=== PATIENT | male | born 1950 | race Caucasian/White ===

== ENCOUNTER 2022-03-08 16:20 | Inpatient (IN) ==
[2022-03-08] MEDS ORDERED: DEXTROSE 50% 25 GM/50 ML SYRINGE IV ONE ×2 (16:35→18:10)
[2022-03-08] MEDS ORDERED: DEXTROSE 50% 25 GM/50 ML VIAL IV STA ×2 (16:50→16:58)
[2022-03-08 16:58] LABS: Basophils % 0.4 % (0.0-0.8); Eosinophils # 0.2 10*3/uL (0.0-0.87); Eosinophils % 1.9 % (0.00-10.9); Hematocrit 38.5 VOL% (42.0-52.0); Hemoglobin 12.2 GM/DL (14.0-18.0); Immature Granulocytes % 0.9 %; Immature Granulocytes Absolute 0.09 #; Lymphocytes # 1.7 10*3/uL (1.4-4.0); Lymphocytes % 16.3 % (21.2-54.2); Mean Corpuscular HGB Conc 31.7 GM/DL (32-36); Mean Platelet Volume 9.6 FL (9.6-12.0); Monocytes # 0.7 10*3/uL (0.11-0.8); Monocytes % 6.8 % (1.7-12.7); Neutrophils % 73.7 % (38.7-73.9); Platelet Count 327 T/CUMM (130-400); Red Blood Count 4.28 MC/CUMM (3.8-5.5); Red Cell Distribution Width 15.7 % (9.3-17.3); White Blood Count 10.5 T/CUMM (4-12)
[2022-03-08 17:13] LABS: INR 2.5; PT Patient Result 25.5 SECS (10.1-12.1); Partial Thromboplastin Time 36.5 SECS (23.7-32.9)
[2022-03-08 17:48] LABS: Calcium 9.7 MG/DL (8.5-10.1)
[2022-03-08 17:49] LABS: Albumin 2.9 G/DL (3.4-5.0); Osmolality,Calculated 277.4 MOS/KG (273-304)
[2022-03-08 17:54] LABS: Bilirubin,Total 0.4 MG/DL (0.20-1.00); Total Protein 6.9 G/DL (6.4-8.2)
[2022-03-08 17:58] LABS: Potassium 6.1 MMOL/L (3.5-5.1)
[2022-03-08] MEDS ORDERED: SODIUM BICARBONATE 50 MEQ/50 ML VIAL IV STA (17:58)
[2022-03-08] MEDS ORDERED: INSULIN REGULAR 100 UNIT/ML IV STA (17:58)
[2022-03-08] MEDS ORDERED: CALCIUM CHLORIDE 1,000 MG/10 ML SYRINGE IV STA (17:58)
[2022-03-08] MEDS ORDERED: SODIUM CHLORIDE 0.9% 2,000 ML IV STA (18:30)
[2022-03-08] MEDS ORDERED: GLUCAGON 1 MG VIAL IM PRN (22:57)
[2022-03-08] MEDS ORDERED: ONDANSETRON 4 MG/2 ML VIAL IV PRN (22:57)
[2022-03-08] MEDS ORDERED: DEXTROSE 10% 250 ML BAG IV PRN (23:00)
[2022-03-08] MEDS: DOCUSATE SODIUM 100 MG CAPSULE PO SCH (23:44)
[2022-03-08] MEDS: SODIUM CHLORIDE 0.9% 1,000 ML IV SCH (23:44)
[2022-03-09] MEDS: ACETAMINOPHEN 325 MG TABLET PO PRN ×3 (01:39→23:46)
[2022-03-09 06:18] LABS: Calcium 9.9 MG/DL (8.5-10.1); Potassium 5.3 MMOL/L (3.5-5.1)
[2022-03-09] MEDS ORDERED: LACTULOSE 20 GM/30 ML UDCUP PO PRN (08:45)
[2022-03-09] MEDS: DOCUSATE SODIUM 100 MG CAPSULE PO SCH ×2 (09:21→21:01)
[2022-03-09] MEDS: PANTOPRAZOLE 40 MG TABLET PO SCH (09:21)
[2022-03-09] MEDS: SODIUM CHLORIDE 0.9% 1,000 ML IV SCH ×2 (10:00→21:02)
[2022-03-09] MEDS: ALBUTEROL 2.5 MG/3 ML NEB RESP TX SCH ×2 (19:21→23:40)
[2022-03-09] MEDS: traMADol 50 MG TABLET PO PRN (23:05)
[2022-03-10] MEDS: SODIUM CHLORIDE 0.9% 1,000 ML IV SCH ×3 (00:27→21:09)
[2022-03-10] MEDS: ALBUTEROL 2.5 MG/3 ML NEB RESP TX SCH ×5 (02:09→19:19)
[2022-03-10] MEDS: PANTOPRAZOLE 40 MG TABLET PO SCH (09:41)
[2022-03-10] MEDS: traMADol 50 MG TABLET PO PRN (09:42)
[2022-03-10] MEDS: DOCUSATE SODIUM 100 MG CAPSULE PO SCH ×2 (09:51→21:29)
[2022-03-10] MEDS: ACETAMINOPHEN 325 MG TABLET PO PRN (13:02)
[2022-03-10] MEDS ORDERED: ALBUTEROL 2.5 MG/3 ML NEB RESP TX PRN (13:13)
[2022-03-10] MEDS: traMADol 50 MG TABLET PO SCH ×2 (16:05→21:28)
[2022-03-10] MEDS ORDERED: SIMVASTATIN 20 MG TABLET PO SCH (21:00)
[2022-03-10] MEDS: METOPROLOL SUCCINATE XL 100 MG TABLET PO SCH (21:26)
[2022-03-10] MEDS: DILTIAZEM CD 240 MG CAPSULE PO SCH (21:26)
[2022-03-10] MEDS: allopurinoL 100 MG TABLET PO SCH (21:29)
[2022-03-10] MEDS: CLOTRIMAZOLE 1% CREAM 15 GM TUBE TOP SCH (21:30)
[2022-03-10] MEDS: NYSTATIN POWDER 15 GM BOTTLE TOP SCH (21:30)
[2022-03-11] MEDS: ALBUTEROL 2.5 MG/3 ML NEB RESP TX SCH ×6 (00:02→19:23)
[2022-03-11] MEDS: ACETAMINOPHEN 325 MG TABLET PO PRN ×3 (00:20→12:35)
[2022-03-11] MEDS: SODIUM CHLORIDE 0.9% 1,000 ML IV SCH ×3 (05:53→22:49)
[2022-03-11 06:01] LABS: Basophils % 0.4 % (0.0-0.8); Eosinophils # 0.2 10*3/uL (0.0-0.87); Eosinophils % 2.1 % (0.00-10.9); Hematocrit 32.7 VOL% (42.0-52.0); Hemoglobin 10.6 GM/DL (14.0-18.0); Immature Granulocytes % 0.5 %; Immature Granulocytes Absolute 0.04 #; Lymphocytes # 1.6 10*3/uL (1.4-4.0); Lymphocytes % 19.9 % (21.2-54.2); Mean Corpuscular HGB Conc 32.4 GM/DL (32-36); Mean Corpuscular Volume 89.6 FL (87-102); Mean Platelet Volume 9.7 FL (9.6-12.0); Monocytes # 0.9 10*3/uL (0.11-0.8); Monocytes % 11.6 % (1.7-12.7); Neutrophils % 65.5 % (38.7-73.9); Platelet Count 260 T/CUMM (130-400); Red Blood Count 3.65 MC/CUMM (3.8-5.5); Red Cell Distribution Width 15.9 % (9.3-17.3); White Blood Count 8.1 T/CUMM (4-12)
[2022-03-11 06:26] LABS: Calcium 8.8 MG/DL (8.5-10.1); Osmolality,Calculated 285.1 MOS/KG (273-304)
[2022-03-11] MEDS ORDERED: GLIMEPIRIDE 2 MG TABLET PO SCH (09:00)
[2022-03-11] MEDS: DOCUSATE SODIUM 100 MG CAPSULE PO SCH ×2 (10:14→21:49)
[2022-03-11] MEDS: allopurinoL 100 MG TABLET PO SCH ×2 (10:14→21:49)
[2022-03-11] MEDS: TAMSULOSIN 0.4 MG CAPSULE PO SCH (10:14)
[2022-03-11] MEDS: METOPROLOL SUCCINATE XL 100 MG TABLET PO SCH ×2 (10:14→21:49)
[2022-03-11] MEDS: PANTOPRAZOLE 40 MG TABLET PO SCH (10:14)
[2022-03-11] MEDS: CLOTRIMAZOLE 1% CREAM 15 GM TUBE TOP SCH ×2 (10:15→22:46)
[2022-03-11] MEDS: INSULIN GLARGINE 100 UNIT/ML SUBCUT SCH (10:15)
[2022-03-11] MEDS: ASPIRIN CHEW 81 MG TABLET PO SCH (10:15)
[2022-03-11] MEDS: NYSTATIN POWDER 15 GM BOTTLE TOP SCH ×2 (10:15→22:47)
[2022-03-11] MEDS: WARFARIN 5 MG TABLET PO SCH (18:04)
[2022-03-11] MEDS: DILTIAZEM CD 240 MG CAPSULE PO SCH (21:50)
[2022-03-12] MEDS: ALBUTEROL 2.5 MG/3 ML NEB RESP TX SCH ×7 (00:08→23:20)
[2022-03-12] MEDS: ACETAMINOPHEN 325 MG TABLET PO PRN ×2 (03:28→18:25)
[2022-03-12] MEDS: SODIUM CHLORIDE 0.9% 1,000 ML IV SCH ×3 (06:06→19:08)
[2022-03-12 06:26] LABS: Basophils % 0.3 % (0.0-0.8); Eosinophils # 0.2 10*3/uL (0.0-0.87); Eosinophils % 2.6 % (0.00-10.9); Hematocrit 35.2 VOL% (42.0-52.0); Hemoglobin 11.2 GM/DL (14.0-18.0); Immature Granulocytes % 0.4 %; Immature Granulocytes Absolute 0.04 #; Lymphocytes # 1.4 10*3/uL (1.4-4.0); Lymphocytes % 15.7 % (21.2-54.2); Mean Corpuscular HGB Conc 31.8 GM/DL (32-36); Mean Platelet Volume 9.8 FL (9.6-12.0); Monocytes # 0.8 10*3/uL (0.11-0.8); Monocytes % 9.2 % (1.7-12.7); Neutrophils % 71.8 % (38.7-73.9); Platelet Count 262 T/CUMM (130-400); Red Blood Count 3.91 MC/CUMM (3.8-5.5); Red Cell Distribution Width 15.9 % (9.3-17.3); White Blood Count 9.1 T/CUMM (4-12)
[2022-03-12 06:37] LABS: INR 2.2; PT Patient Result 23.1 SECS (10.1-12.1)
[2022-03-12 06:40] LABS: Osmolality,Calculated 287.1 MOS/KG (273-304); Potassium 5.3 MMOL/L (3.5-5.1)
[2022-03-12] MEDS: allopurinoL 100 MG TABLET PO SCH ×2 (09:11→21:24)
[2022-03-12] MEDS: DOCUSATE SODIUM 100 MG CAPSULE PO SCH ×2 (09:11→21:24)
[2022-03-12] MEDS: ASPIRIN CHEW 81 MG TABLET PO SCH (09:11)
[2022-03-12] MEDS: TAMSULOSIN 0.4 MG CAPSULE PO SCH (09:11)
[2022-03-12] MEDS: PANTOPRAZOLE 40 MG TABLET PO SCH (09:11)
[2022-03-12] MEDS: METOPROLOL SUCCINATE XL 100 MG TABLET PO SCH ×2 (09:11→21:24)
[2022-03-12] MEDS: NYSTATIN POWDER 15 GM BOTTLE TOP SCH ×2 (09:12→21:25)
[2022-03-12] MEDS: INSULIN GLARGINE 100 UNIT/ML SUBCUT SCH (09:12)
[2022-03-12] MEDS: CLOTRIMAZOLE 1% CREAM 15 GM TUBE TOP SCH ×2 (09:13→21:25)
[2022-03-12] MEDS: WARFARIN 5 MG TABLET PO SCH (18:25)
[2022-03-12] MEDS: DILTIAZEM CD 240 MG CAPSULE PO SCH (21:24)
[2022-03-13] MEDS: ALBUTEROL 2.5 MG/3 ML NEB RESP TX SCH ×5 (03:05→19:51)
[2022-03-13] MEDS: ACETAMINOPHEN 325 MG TABLET PO PRN (06:33)
[2022-03-13 06:46] LABS: Calcium 9.3 MG/DL (8.5-10.1); Osmolality,Calculated 286.2 MOS/KG (273-304); Potassium 5.3 MMOL/L (3.5-5.1)
[2022-03-13] MEDS: allopurinoL 100 MG TABLET PO SCH ×2 (09:45→21:48)
[2022-03-13] MEDS: ASPIRIN CHEW 81 MG TABLET PO SCH (09:45)
[2022-03-13] MEDS: DOCUSATE SODIUM 100 MG CAPSULE PO SCH ×2 (09:45→21:46)
[2022-03-13] MEDS: METOPROLOL SUCCINATE XL 100 MG TABLET PO SCH ×2 (09:45→21:46)
[2022-03-13] MEDS: PANTOPRAZOLE 40 MG TABLET PO SCH (09:45)
[2022-03-13] MEDS: TAMSULOSIN 0.4 MG CAPSULE PO SCH (09:45)
[2022-03-13] MEDS: CLOTRIMAZOLE 1% CREAM 15 GM TUBE TOP SCH ×2 (09:46→21:49)
[2022-03-13] MEDS: NYSTATIN POWDER 15 GM BOTTLE TOP SCH ×2 (09:46→21:49)
[2022-03-13] MEDS: INSULIN GLARGINE 100 UNIT/ML SUBCUT SCH (09:46)
[2022-03-13] MEDS: SODIUM CHLORIDE 0.9% 1,000 ML IV SCH ×2 (12:38→22:04)
[2022-03-13] MEDS ORDERED: LIDOCAINE 2% TOP JELLY 20 ML VIAL INTRAURETH ONE (16:24)
[2022-03-13] MEDS: WARFARIN 5 MG TABLET PO SCH (19:12)
[2022-03-13 19:46] LABS: Barbiturates Screen,Urine Negative (Negative); Benzodiazepines Screen,Urine Negative (Negative); Cannabinoid Screen,Urine Negative (Negative); Opiate Screen,Urine Positive (Negative); Phencyclidine Screen,Urine Negative (Negative)
[2022-03-13] MEDS: DILTIAZEM CD 240 MG CAPSULE PO SCH (21:46)
[2022-03-14] MEDS: ACETAMINOPHEN 325 MG TABLET PO PRN (00:03)
[2022-03-14] MEDS: ALBUTEROL 2.5 MG/3 ML NEB RESP TX SCH ×6 (00:52→20:10)
[2022-03-14 05:48] LABS: Calcium 9.3 MG/DL (8.5-10.1)
[2022-03-14] MEDS: INSULIN GLARGINE 100 UNIT/ML SUBCUT SCH (08:41)
[2022-03-14] MEDS: DOCUSATE SODIUM 100 MG CAPSULE PO SCH ×2 (08:42→20:46)
[2022-03-14] MEDS: allopurinoL 100 MG TABLET PO SCH ×2 (08:42→22:24)
[2022-03-14] MEDS: ASPIRIN CHEW 81 MG TABLET PO SCH (08:42)
[2022-03-14] MEDS: SODIUM CHLORIDE 0.9% 1,000 ML IV SCH ×2 (08:42→09:51)
[2022-03-14] MEDS: METOPROLOL SUCCINATE XL 100 MG TABLET PO SCH ×2 (08:42→22:25)
[2022-03-14] MEDS: TAMSULOSIN 0.4 MG CAPSULE PO SCH (08:42)
[2022-03-14] MEDS: PANTOPRAZOLE 40 MG TABLET PO SCH (08:42)
[2022-03-14] MEDS: CLOTRIMAZOLE 1% CREAM 15 GM TUBE TOP SCH ×2 (08:43→20:50)
[2022-03-14] MEDS: NYSTATIN POWDER 15 GM BOTTLE TOP SCH ×2 (08:43→22:25)
[2022-03-14] MEDS: WARFARIN 5 MG TABLET PO SCH (17:49)
[2022-03-14] MEDS: DILTIAZEM CD 240 MG CAPSULE PO SCH (20:46)
[2022-03-15] MEDS: ALBUTEROL 2.5 MG/3 ML NEB RESP TX SCH ×7 (00:48→23:56)
[2022-03-15] MEDS: SODIUM CHLORIDE 0.9% 1,000 ML IV SCH (04:42)
[2022-03-15 06:35] LABS: INR 3.6; PT Patient Result 36.3 SECS (10.1-12.1)
[2022-03-15 06:42] LABS: Calcium 8.7 MG/DL (8.5-10.1); Potassium 4.8 MMOL/L (3.5-5.1)
[2022-03-15] MEDS: DOCUSATE SODIUM 100 MG CAPSULE PO SCH ×2 (08:40→20:23)
[2022-03-15] MEDS: PANTOPRAZOLE 40 MG TABLET PO SCH (08:40)
[2022-03-15] MEDS: allopurinoL 100 MG TABLET PO SCH ×2 (08:40→20:24)
[2022-03-15] MEDS: ASPIRIN CHEW 81 MG TABLET PO SCH (08:40)
[2022-03-15] MEDS: TAMSULOSIN 0.4 MG CAPSULE PO SCH (08:40)
[2022-03-15] MEDS: METOPROLOL SUCCINATE XL 100 MG TABLET PO SCH ×2 (08:41→20:23)
[2022-03-15] MEDS: NYSTATIN POWDER 15 GM BOTTLE TOP SCH ×2 (08:41→21:54)
[2022-03-15] MEDS: CLOTRIMAZOLE 1% CREAM 15 GM TUBE TOP SCH ×2 (08:41→21:54)
[2022-03-15] MEDS: INSULIN GLARGINE 100 UNIT/ML SUBCUT SCH (09:27)
[2022-03-15] MEDS: DILTIAZEM CD 240 MG CAPSULE PO SCH (20:24)
[2022-03-15] MEDS: ACETAMINOPHEN 325 MG TABLET PO PRN (20:28)
[2022-03-16] MEDS: ALBUTEROL 2.5 MG/3 ML NEB RESP TX SCH ×5 (03:15→20:03)
[2022-03-16] MEDS: SODIUM CHLORIDE 0.9% 1,000 ML IV SCH (05:19)
[2022-03-16 05:38] LABS: INR 3.2; PT Patient Result 32.3 SECS (10.1-12.1)
[2022-03-16 05:49] LABS: Calcium 9.1 MG/DL (8.5-10.1); Osmolality,Calculated 300.8 MOS/KG (273-304); Potassium 4.5 MMOL/L (3.5-5.1)
[2022-03-16] MEDS: INSULIN GLARGINE 100 UNIT/ML SUBCUT SCH (08:28)
[2022-03-16] MEDS: NYSTATIN POWDER 15 GM BOTTLE TOP SCH ×2 (08:29→21:35)
[2022-03-16] MEDS: CLOTRIMAZOLE 1% CREAM 15 GM TUBE TOP SCH ×2 (08:29→21:34)
[2022-03-16] MEDS: ASPIRIN CHEW 81 MG TABLET PO SCH (08:29)
[2022-03-16] MEDS: PANTOPRAZOLE 40 MG TABLET PO SCH (08:29)
[2022-03-16] MEDS: METOPROLOL SUCCINATE XL 100 MG TABLET PO SCH ×2 (08:29→21:34)
[2022-03-16] MEDS: DOCUSATE SODIUM 100 MG CAPSULE PO SCH ×2 (08:29→21:34)
[2022-03-16] MEDS: allopurinoL 100 MG TABLET PO SCH ×2 (08:29→21:34)
[2022-03-16] MEDS: TAMSULOSIN 0.4 MG CAPSULE PO SCH (08:29)
[2022-03-16] MEDS: DILTIAZEM CD 240 MG CAPSULE PO SCH (21:34)
[2022-03-17] MEDS: SODIUM CHLORIDE 0.9% 1,000 ML IV SCH ×2 (00:32→21:26)
[2022-03-17] MEDS: ALBUTEROL 2.5 MG/3 ML NEB RESP TX SCH ×7 (00:37→22:10)
[2022-03-17 06:19] LABS: Calcium 9.3 MG/DL (8.5-10.1); Osmolality,Calculated 297.7 MOS/KG (273-304); Potassium 4.5 MMOL/L (3.5-5.1)
[2022-03-17] MEDS: allopurinoL 100 MG TABLET PO SCH ×2 (09:58→21:28)
[2022-03-17] MEDS: ASPIRIN CHEW 81 MG TABLET PO SCH (09:58)
[2022-03-17] MEDS: METOPROLOL SUCCINATE XL 100 MG TABLET PO SCH ×2 (09:58→21:28)
[2022-03-17] MEDS: INSULIN GLARGINE 100 UNIT/ML SUBCUT SCH (09:59)
[2022-03-17] MEDS: NYSTATIN POWDER 15 GM BOTTLE TOP SCH ×2 (11:02→21:28)
[2022-03-17] MEDS: TAMSULOSIN 0.4 MG CAPSULE PO SCH (11:02)
[2022-03-17] MEDS: DOCUSATE SODIUM 100 MG CAPSULE PO SCH ×2 (11:02→21:28)
[2022-03-17] MEDS: CLOTRIMAZOLE 1% CREAM 15 GM TUBE TOP SCH (11:02)
[2022-03-17] MEDS: PANTOPRAZOLE 40 MG TABLET PO SCH (11:02)
[2022-03-17] MEDS: DILTIAZEM CD 240 MG CAPSULE PO SCH (21:28)
[2022-03-17] MEDS: ACETAMINOPHEN 325 MG TABLET PO PRN (21:31)
[2022-03-18] MEDS: ALBUTEROL 2.5 MG/3 ML NEB RESP TX SCH ×5 (02:30→19:42)
[2022-03-18] MEDS: ACETAMINOPHEN 325 MG TABLET PO PRN (03:06)
[2022-03-18 05:49] LABS: Basophils % 0.4 % (0.0-0.8); Eosinophils # 0.4 10*3/uL (0.0-0.87); Hematocrit 32.4 VOL% (42.0-52.0); Hemoglobin 10.4 GM/DL (14.0-18.0); Immature Granulocytes % 0.7 %; Immature Granulocytes Absolute 0.05 #; Lymphocytes # 1.4 10*3/uL (1.4-4.0); Lymphocytes % 19.6 % (21.2-54.2); Mean Corpuscular HGB Conc 32.1 GM/DL (32-36); Mean Corpuscular Volume 93.1 FL (87-102); Mean Platelet Volume 9.5 FL (9.6-12.0); Monocytes # 0.6 10*3/uL (0.11-0.8); Monocytes % 9.1 % (1.7-12.7); Neutrophils % 65.2 % (38.7-73.9); Platelet Count 307 T/CUMM (130-400); Red Blood Count 3.48 MC/CUMM (3.8-5.5); Red Cell Distribution Width 15.9 % (9.3-17.3)
[2022-03-18 06:04] LABS: INR 1.7; PT Patient Result 17.8 SECS (10.1-12.1)
[2022-03-18 06:20] LABS: Calcium 9.1 MG/DL (8.5-10.1); Osmolality,Calculated 297.7 MOS/KG (273-304); Potassium 4.1 MMOL/L (3.5-5.1)
[2022-03-18] MEDS: allopurinoL 100 MG TABLET PO SCH ×2 (09:42→21:57)
[2022-03-18] MEDS: METOPROLOL SUCCINATE XL 100 MG TABLET PO SCH ×2 (09:42→21:57)
[2022-03-18] MEDS: TAMSULOSIN 0.4 MG CAPSULE PO SCH (09:43)
[2022-03-18] MEDS: DOCUSATE SODIUM 100 MG CAPSULE PO SCH ×2 (09:43→21:57)
[2022-03-18] MEDS: ASPIRIN CHEW 81 MG TABLET PO SCH (09:43)
[2022-03-18] MEDS: NYSTATIN POWDER 15 GM BOTTLE TOP SCH ×2 (09:43→21:57)
[2022-03-18] MEDS: PANTOPRAZOLE 40 MG TABLET PO SCH (09:43)
[2022-03-18] MEDS: INSULIN GLARGINE 100 UNIT/ML SUBCUT SCH (09:47)
[2022-03-18] MEDS ORDERED: ALBUTEROL 1.25 MG/3 ML NEB RESP TX ONE (19:04)
[2022-03-18] MEDS: DILTIAZEM CD 240 MG CAPSULE PO SCH (21:57)
[2022-03-19] MEDS: ALBUTEROL 2.5 MG/3 ML NEB RESP TX SCH ×2 (01:32→07:20)
[2022-03-19] MEDS: ACETAMINOPHEN 325 MG TABLET PO PRN (02:46)
[2022-03-19] MEDS: SODIUM CHLORIDE 0.9% 1,000 ML IV SCH (05:24)
[2022-03-19 06:37] LABS: Calcium 9.5 MG/DL (8.5-10.1); Osmolality,Calculated 291.8 MOS/KG (273-304); Potassium 4.1 MMOL/L (3.5-5.1)
[2022-03-19] MEDS: PANTOPRAZOLE 40 MG TABLET PO SCH (09:14)
[2022-03-19] MEDS: ASPIRIN CHEW 81 MG TABLET PO SCH (09:14)
[2022-03-19] MEDS: TAMSULOSIN 0.4 MG CAPSULE PO SCH (09:14)
[2022-03-19] MEDS: allopurinoL 100 MG TABLET PO SCH (09:15)
[2022-03-19] MEDS: METOPROLOL SUCCINATE XL 100 MG TABLET PO SCH (09:15)
[2022-03-19] MEDS: DOCUSATE SODIUM 100 MG CAPSULE PO SCH (09:15)
[2022-03-19] MEDS: NYSTATIN POWDER 15 GM BOTTLE TOP SCH (09:15)
[2022-03-19] MEDS: INSULIN GLARGINE 100 UNIT/ML SUBCUT SCH (09:16)
[2022-03-19 10:58] VITALS: BP 143/67
== END 2022-03-19 14:09 | disposition swing bed (61) | DRG 683 ==
LOC: N.EDINP 16:20 → N.ED 16:20 → N.3E 21:36
PROVIDERS: ADMIT Family Medicine; ATTEND Family Medicine

== ENCOUNTER 2022-04-23 19:09 | Observation (INO) ==
[2022-04-23] MEDS ORDERED: FUROSEMIDE 40 MG/4 ML VIAL IV STA (19:27)
[2022-04-23] MEDS ORDERED: ALBUTEROL/IPRATROPIUM 3 ML NEB RESP TX STA (19:27)
[2022-04-23 19:59] LABS: Arterial Base Excess iSTAT 14 MMOL/L (-2.5-2.5); Arterial Bicarbonate iSTAT 43.2 MMOL/L (20-26); Arterial O2 Saturation iSTAT 94 % (95-100); Arterial PCO2 iSTAT 80 MM HG (35-48); Arterial PO2 iSTAT 82 MM HG (80-95); Arterial Total CO2 iSTAT 46 MMO/L (23-27); Arterial pH iSTAT 7.343 (7.35-7.45)
[2022-04-23] MEDS ORDERED: FUROSEMIDE 100 MG/10 ML VIAL IV STA (19:59)
[2022-04-23] MEDS ORDERED: ONDANSETRON 4 MG/2 ML VIAL IV STA (19:59)
[2022-04-23 20:22] LABS: Basophils % 0.4 % (0.0-0.8); Eosinophils # 0.3 10*3/uL (0.0-0.87); Eosinophils % 4.2 % (0.00-10.9); Hematocrit 37.5 VOL% (42.0-52.0); Hemoglobin 11.5 GM/DL (14.0-18.0); Immature Granulocytes % 0.4 %; Immature Granulocytes Absolute 0.03 #; Lymphocytes # 1.9 10*3/uL (1.4-4.0); Lymphocytes % 25.7 % (21.2-54.2); Mean Corpuscular HGB Conc 30.7 GM/DL (32-36); Mean Platelet Volume 9.1 FL (9.6-12.0); Monocytes # 0.6 10*3/uL (0.11-0.8); Monocytes % 8.4 % (1.7-12.7); Neutrophils % 60.9 % (38.7-73.9); Platelet Count 222 T/CUMM (130-400); Red Blood Count 3.99 MC/CUMM (3.8-5.5); Red Cell Distribution Width 15.9 % (9.3-17.3); White Blood Count 7.4 T/CUMM (4-12)
[2022-04-23 20:45] LABS: INR 2.1; PT Patient Result 22.1 SECS (10.1-12.1)
[2022-04-23] MEDS ORDERED: ONDANSETRON 4 MG/2 ML VIAL IV PRN (20:57)
[2022-04-23] MEDS ORDERED: GLUCAGON 1 MG VIAL IM PRN (20:57)
[2022-04-23] MEDS ORDERED: ACETAMINOPHEN 325 MG TABLET PO PRN (20:57)
[2022-04-23] MEDS ORDERED: MORPHINE 2 MG/1 ML SYRINGE IV PRN (20:57)
[2022-04-23] MEDS ORDERED: DEXTROSE 10% 250 ML BAG IV PRN (21:02)
[2022-04-23 21:09] LABS: Alanine Aminotransferase 25 U/L (16-61); Albumin 2.8 G/DL (3.4-5.0); Alkaline Phosphatase 113 U/L (45-117); Aspartate Amino Transferase 20 U/L (0-37); Bilirubin,Total < 0.39 MG/DL (0.20-1.00); Blood Urea Nitrogen 12 MG/DL (7-18); Calcium 9.2 MG/DL (8.5-10.1); Carbon Dioxide 39 MMOL/L (21-32); Chloride 96 MMOL/L (98-107); Glucose 119 MG/DL (74-106); Osmolality,Calculated 275.7 MOS/KG (273-304); Potassium 4.2 MMOL/L (3.5-5.1); Sodium 138 MMOL/L (136-145); Total Protein 6.8 G/DL (6.4-8.2)
[2022-04-23] MEDS ORDERED: MAGNESIUM SULF RIDER 2 GM/50 ML PREMIX IV STA (21:12)
[2022-04-23] MEDS: SODIUM CHLORIDE 0.9% 1,000 ML IV SCH (23:10)
[2022-04-23] MEDS: DOCUSATE SODIUM 100 MG CAPSULE PO SCH (23:27)
[2022-04-23] MEDS: INSULIN REGULAR 100 UNIT/ML SUBCUT SCH (23:40)
[2022-04-24] MEDS: INSULIN REGULAR 100 UNIT/ML SUBCUT SCH ×4 (06:59→20:54)
[2022-04-24] MEDS ORDERED: ALBUTEROL 2.5 MG/3 ML NEB RESP TX PRN (07:08)
[2022-04-24] MEDS ORDERED: diphenhydrAMINE CAP 25 MG CAPSULE PO PRN (07:08)
[2022-04-24] MEDS ORDERED: LACTULOSE 20 GM/30 ML UDCUP PO PRN (07:08)
[2022-04-24] MEDS ORDERED: ACETAMINOPHEN 325 MG TABLET PO PRN (07:08)
[2022-04-24] MEDS ORDERED: LEVALBUTEROL 1.25 MG/3 ML NEB RESP TX PRN (07:13)
[2022-04-24] MEDS ORDERED: INSULIN GLARGINE 100 UNIT/ML SUBCUT SCH (09:00)
[2022-04-24] MEDS ORDERED: PANTOPRAZOLE 40 MG TABLET PO SCH (09:00)
[2022-04-24] MEDS: FUROSEMIDE 80 MG TABLET PO SCH (09:09)
[2022-04-24] MEDS: TAMSULOSIN 0.4 MG CAPSULE PO SCH (09:09)
[2022-04-24] MEDS: DOCUSATE SODIUM 100 MG CAPSULE PO SCH ×2 (09:09→20:53)
[2022-04-24] MEDS: POTASSIUM CHLORIDE 20 MEQ TABLET PO SCH (09:09)
[2022-04-24] MEDS: METOPROLOL SUCCINATE XL 100 MG TABLET PO SCH ×2 (09:09→20:53)
[2022-04-24] MEDS: ASPIRIN CHEW 81 MG TABLET PO SCH (09:10)
[2022-04-24] MEDS: LOSARTAN 50 MG TABLET PO SCH (09:10)
[2022-04-24] MEDS: metFORMIN 500 MG TABLET PO SCH ×2 (09:11→20:53)
[2022-04-24] MEDS: DOCUSATE/SENNA 50-8.6 MG TABLET PO SCH ×2 (09:11→20:53)
[2022-04-24] MEDS: allopurinoL 100 MG TABLET PO SCH ×2 (09:11→20:53)
[2022-04-24] MEDS: NYSTATIN POWDER 15 GM BOTTLE TOP SCH ×2 (09:13→20:52)
[2022-04-24] MEDS: PANTOPRAZOLE 40 MG TABLET PO SCH (09:14)
[2022-04-24] MEDS: INSULIN GLARGINE 100 UNIT/ML SUBCUT SCH (11:37)
[2022-04-24] MEDS ORDERED: WARFARIN 10 MG TABLET PO SCH (18:00)
[2022-04-24] MEDS: DILTIAZEM CD 240 MG CAPSULE PO SCH (20:53)
[2022-04-24] MEDS: SODIUM CHLORIDE 0.9% 1,000 ML IV SCH (21:20)
[2022-04-25 03:23] LABS: Arterial Base Excess iSTAT 16 MMOL/L (-2.5-2.5); Arterial Bicarbonate iSTAT 44.6 MMOL/L (20-26); Arterial O2 Saturation iSTAT 95 % (95-100); Arterial PCO2 iSTAT 75 MM HG (35-48); Arterial PO2 iSTAT 80 MM HG (80-95); Arterial Total CO2 iSTAT 47 MMO/L (23-27); Arterial pH iSTAT 7.383 (7.35-7.45)
[2022-04-25] MEDS: METOPROLOL SUCCINATE XL 100 MG TABLET PO SCH ×2 (08:56→20:57)
[2022-04-25] MEDS: ASPIRIN CHEW 81 MG TABLET PO SCH (08:56)
[2022-04-25] MEDS: DOCUSATE SODIUM 100 MG CAPSULE PO SCH ×2 (08:57→20:56)
[2022-04-25] MEDS: TAMSULOSIN 0.4 MG CAPSULE PO SCH (08:57)
[2022-04-25] MEDS: POTASSIUM CHLORIDE 20 MEQ TABLET PO SCH (08:57)
[2022-04-25] MEDS: metFORMIN 500 MG TABLET PO SCH ×2 (08:57→20:56)
[2022-04-25] MEDS: FUROSEMIDE 80 MG TABLET PO SCH (08:58)
[2022-04-25] MEDS: PANTOPRAZOLE 40 MG TABLET PO SCH (08:58)
[2022-04-25] MEDS: LOSARTAN 50 MG TABLET PO SCH (08:58)
[2022-04-25] MEDS: allopurinoL 100 MG TABLET PO SCH ×2 (08:59→20:57)
[2022-04-25] MEDS ORDERED: BETAMETH SODIUM PHOS/ACETATE 30 MG/5 ML VIAL INTRAARTIC ONE (11:30)
[2022-04-25] MEDS ORDERED: BUPIVACAINE MPF 0.5% 30 ML VIAL CAUDAL ONE (11:30)
[2022-04-25] MEDS: INSULIN REGULAR 100 UNIT/ML SUBCUT SCH ×4 (11:48→20:57)
[2022-04-25] MEDS: INSULIN GLARGINE 100 UNIT/ML SUBCUT SCH (11:48)
[2022-04-25] MEDS: NYSTATIN POWDER 15 GM BOTTLE TOP SCH ×2 (11:49→21:00)
[2022-04-25] MEDS: DOCUSATE/SENNA 50-8.6 MG TABLET PO SCH ×2 (11:49→20:57)
[2022-04-25] MEDS ORDERED: LIDOCAINE 2% TOP JELLY 20 ML VIAL INTRAURETH ONE (17:01)
[2022-04-25] MEDS: DILTIAZEM CD 240 MG CAPSULE PO SCH (20:57)
[2022-04-26] MEDS: SODIUM CHLORIDE 0.9% 1,000 ML IV SCH ×2 (00:12→23:52)
[2022-04-26] MEDS: INSULIN REGULAR 100 UNIT/ML SUBCUT SCH ×4 (08:05→23:53)
[2022-04-26] MEDS: LOSARTAN 50 MG TABLET PO SCH (10:04)
[2022-04-26] MEDS: TAMSULOSIN 0.4 MG CAPSULE PO SCH (10:04)
[2022-04-26] MEDS: DOCUSATE SODIUM 100 MG CAPSULE PO SCH ×2 (10:04→22:11)
[2022-04-26] MEDS: metFORMIN 500 MG TABLET PO SCH ×2 (10:13→22:11)
[2022-04-26] MEDS: PANTOPRAZOLE 40 MG TABLET PO SCH (10:14)
[2022-04-26] MEDS: INSULIN GLARGINE 100 UNIT/ML SUBCUT SCH (10:14)
[2022-04-26] MEDS: FUROSEMIDE 80 MG TABLET PO SCH (10:14)
[2022-04-26] MEDS: allopurinoL 100 MG TABLET PO SCH ×2 (10:14→22:12)
[2022-04-26] MEDS: NYSTATIN POWDER 15 GM BOTTLE TOP SCH ×2 (10:14→22:12)
[2022-04-26] MEDS: DOCUSATE/SENNA 50-8.6 MG TABLET PO SCH ×2 (10:14→22:11)
[2022-04-26] MEDS: METOPROLOL SUCCINATE XL 100 MG TABLET PO SCH ×2 (10:14→22:11)
[2022-04-26] MEDS: POTASSIUM CHLORIDE 20 MEQ TABLET PO SCH (10:14)
[2022-04-26] MEDS: DILTIAZEM CD 240 MG CAPSULE PO SCH (22:12)
[2022-04-27] MEDS: INSULIN REGULAR 100 UNIT/ML SUBCUT SCH ×2 (07:57→13:07)
[2022-04-27] MEDS: POTASSIUM CHLORIDE 20 MEQ TABLET PO SCH (09:21)
[2022-04-27] MEDS: LOSARTAN 50 MG TABLET PO SCH (09:21)
[2022-04-27] MEDS: DOCUSATE/SENNA 50-8.6 MG TABLET PO SCH (09:21)
[2022-04-27] MEDS: allopurinoL 100 MG TABLET PO SCH (09:21)
[2022-04-27] MEDS: METOPROLOL SUCCINATE XL 100 MG TABLET PO SCH (09:21)
[2022-04-27] MEDS: metFORMIN 500 MG TABLET PO SCH (09:21)
[2022-04-27] MEDS: FUROSEMIDE 80 MG TABLET PO SCH (09:21)
[2022-04-27] MEDS: TAMSULOSIN 0.4 MG CAPSULE PO SCH (09:21)
[2022-04-27] MEDS: PANTOPRAZOLE 40 MG TABLET PO SCH (09:21)
[2022-04-27] MEDS: DOCUSATE SODIUM 100 MG CAPSULE PO SCH (09:21)
[2022-04-27] MEDS: NYSTATIN POWDER 15 GM BOTTLE TOP SCH (09:22)
[2022-04-27] MEDS: INSULIN GLARGINE 100 UNIT/ML SUBCUT SCH (09:23)
[2022-04-27 12:29] VITALS: BP 132/68
== END 2022-04-27 15:25 ==
LOC: N.ED 19:09 → N.EDINP 19:09 → N.5E 21:26
PROVIDERS: ADMIT Family Medicine; ATTEND Family Medicine

== ENCOUNTER 2022-06-25 19:27 | Inpatient (IN) ==
[2022-06-25 20:10] LABS: Basophils % 0.2 % (0.0-0.8); Eosinophils % 0.4 % (0.00-10.9); Hematocrit 35.9 VOL% (42.0-52.0); Hemoglobin 10.8 GM/DL (14.0-18.0); Immature Granulocytes % 2.3 %; Immature Granulocytes Absolute 0.19 #; Lymphocytes # 1.6 10*3/uL (1.4-4.0); Lymphocytes % 19.2 % (21.2-54.2); Mean Corpuscular HGB Conc 30.1 GM/DL (32-36); Mean Platelet Volume 9.1 FL (9.6-12.0); Monocytes # 0.7 10*3/uL (0.11-0.8); Monocytes % 8.2 % (1.7-12.7); Neutrophils % 69.7 % (38.7-73.9); Platelet Count 359 T/CUMM (130-400); Red Blood Count 3.82 MC/CUMM (3.8-5.5); Red Cell Distribution Width 15.1 % (9.3-17.3); White Blood Count 8.32 T/CUMM (4-12)
[2022-06-25 21:02] LABS: Alanine Aminotransferase 17 U/L (16-61); Albumin 2.4 G/DL (3.4-5.0); Alkaline Phosphatase 115 U/L (45-117); Aspartate Amino Transferase 16 U/L (0-37); Bilirubin,Total < 0.39 MG/DL (0.20-1.00); Blood Urea Nitrogen 44 MG/DL (7-18); Calcium 9.2 MG/DL (8.5-10.1); Carbon Dioxide 34 MMOL/L (21-32); Chloride 98 MMOL/L (98-107); Glucose 102 MG/DL (74-106); Osmolality,Calculated 291.3 MOS/KG (273-304); Potassium 4.6 MMOL/L (3.5-5.1); Sodium 141 MMOL/L (136-145); Total Protein 6.6 G/DL (6.4-8.2)
[2022-06-25 21:03] LABS: Arterial Base Excess iSTAT 11 MMOL/L (-2.5-2.5); Arterial Bicarbonate iSTAT 39.7 MMOL/L (20-26); Arterial O2 Saturation iSTAT 94 % (95-100); Arterial PCO2 iSTAT 78 MM HG (35-48); Arterial PO2 iSTAT 83 MM HG (80-95); Arterial Total CO2 iSTAT 42 MMO/L (23-27); Arterial pH iSTAT 7.313 (7.35-7.45)
[2022-06-25] MEDS ORDERED: AZITHROMYCIN INJ 500 MG in SODIUM CHLORIDE 0.9% 250 ML IV STA (21:13)
[2022-06-25] MEDS ORDERED: cefTRIAXone 1,000 MG in SODIUM CHLORIDE 0.9% 100 ML IV STA (21:13)
[2022-06-25] MEDS ORDERED: ONDANSETRON 4 MG/2 ML VIAL IV PRN (21:14)
[2022-06-25] MEDS ORDERED: PROMETHAZINE 25 MG/1 ML VIAL IM PRN (21:14)
[2022-06-25] MEDS ORDERED: BISACODYL 5 MG TABLET PO PRN (21:14)
[2022-06-25] MEDS ORDERED: NALOXONE 0.4 MG/ML VIAL IV PRN (21:14)
[2022-06-25] MEDS ORDERED: ACETAMINOPHEN 325 MG TABLET PO PRN (21:14)
[2022-06-25] MEDS: ENOXAPARIN 40 MG/0.4 ML SYRINGE SUBCUT SCH (21:46)
[2022-06-25] MEDS ORDERED: SODIUM CHLORIDE 0.9% 500 ML IV STA (21:53)
[2022-06-25] MEDS: SODIUM CHLORIDE 0.9% 1,000 ML IV SCH (23:07)
[2022-06-26 00:09] LABS: INR > 17.6; PT Patient Result > 178.9 SECS (10.1-12.1)
[2022-06-26] MEDS ORDERED: PHYTONADIONE INJ 10 MG in SODIUM CHLORIDE 0.9% 50 ML IV STA (00:10)
[2022-06-26] MEDS ORDERED: SODIUM CHLORIDE 0.9% 1,000 ML IV PRN (00:14)
[2022-06-26 05:59] LABS: Basophils % 0.4 % (0.0-0.8); Eosinophils % 0.5 % (0.00-10.9); Hemoglobin 9.7 GM/DL (14.0-18.0); Immature Granulocytes % 1.1 %; Immature Granulocytes Absolute 0.09 #; Lymphocytes % 25.5 % (21.2-54.2); Mean Corpuscular HGB Conc 30.3 GM/DL (32-36); Mean Corpuscular Volume 94.7 FL (87-102); Mean Platelet Volume 9.9 FL (9.6-12.0); Monocytes # 0.8 10*3/uL (0.11-0.8); Monocytes % 10.2 % (1.7-12.7); Neutrophils % 62.3 % (38.7-73.9); Platelet Count 319 T/CUMM (130-400); Red Blood Count 3.38 MC/CUMM (3.8-5.5); Red Cell Distribution Width 15.9 % (9.3-17.3); White Blood Count 7.97 T/CUMM (4-12)
[2022-06-26 06:33] LABS: Albumin 2.3 G/DL (3.4-5.0); Bilirubin,Total 0.5 MG/DL (0.20-1.00); Calcium 9.6 MG/DL (8.5-10.1); Osmolality,Calculated 286.5 MOS/KG (273-304); Potassium 5.9 MMOL/L (3.5-5.1)
[2022-06-26 07:09] LABS: INR 2.1
[2022-06-26 07:17] LABS: PT Patient Result 21.9 SECS (10.1-12.1)
[2022-06-26] MEDS: SODIUM CHLORIDE 0.9% 1,000 ML IV SCH (13:54)
[2022-06-26] MEDS: DOCUSATE SODIUM 100 MG CAPSULE PO SCH ×2 (14:06→20:42)
[2022-06-26] MEDS: PANTOPRAZOLE 40 MG TABLET PO SCH (14:06)
[2022-06-26] MEDS: ENOXAPARIN 40 MG/0.4 ML SYRINGE SUBCUT SCH (20:42)
[2022-06-27] MEDS: SODIUM CHLORIDE 0.9% 1,000 ML IV SCH ×2 (00:42→15:43)
[2022-06-27 05:13] LABS: Basophils % 0.3 % (0.0-0.8); Eosinophils # 0.1 10*3/uL (0.0-0.87); Eosinophils % 0.9 % (0.00-10.9); Hematocrit 32.6 VOL% (42.0-52.0); Hemoglobin 9.7 GM/DL (14.0-18.0); Immature Granulocytes Absolute 0.07 #; Lymphocytes # 1.8 10*3/uL (1.4-4.0); Lymphocytes % 27.3 % (21.2-54.2); Mean Corpuscular HGB Conc 29.8 GM/DL (32-36); Mean Corpuscular Volume 93.4 FL (87-102); Mean Platelet Volume 9.9 FL (9.6-12.0); Monocytes # 0.7 10*3/uL (0.11-0.8); Monocytes % 10.9 % (1.7-12.7); Neutrophils % 59.6 % (38.7-73.9); Platelet Count 331 T/CUMM (130-400); Red Blood Count 3.49 MC/CUMM (3.8-5.5); Red Cell Distribution Width 15.1 % (9.3-17.3); White Blood Count 6.67 T/CUMM (4-12)
[2022-06-27 05:53] LABS: Calcium 9.2 MG/DL (8.5-10.1); Osmolality,Calculated 286.4 MOS/KG (273-304); Potassium 3.8 MMOL/L (3.5-5.1)
[2022-06-27] MEDS ORDERED: ALBUTEROL 2.5 MG/3 ML NEB RESP TX PRN (06:47)
[2022-06-27] MEDS ORDERED: LACTULOSE 20 GM/30 ML UDCUP PO PRN (06:47)
[2022-06-27] MEDS ORDERED: diphenhydrAMINE CAP 25 MG CAPSULE PO PRN (07:01)
[2022-06-27] MEDS ORDERED: NYSTATIN POWDER 15 GM BOTTLE TOP SCH (09:00)
[2022-06-27] MEDS ORDERED: PANTOPRAZOLE 40 MG TABLET PO SCH (09:00)
[2022-06-27] MEDS ORDERED: metFORMIN 500 MG TABLET PO SCH (09:00)
[2022-06-27] MEDS ORDERED: LOSARTAN 50 MG TABLET PO SCH (09:00)
[2022-06-27] MEDS ORDERED: METOPROLOL SUCCINATE XL 100 MG TABLET PO SCH (09:00)
[2022-06-27] MEDS ORDERED: DOCUSATE/SENNA 50-8.6 MG TABLET PO SCH (09:00)
[2022-06-27] MEDS ORDERED: INSULIN GLARGINE 100 UNIT/ML SUBCUT SCH (09:00)
[2022-06-27] MEDS ORDERED: allopurinoL 100 MG TABLET PO SCH (09:00)
[2022-06-27] MEDS ORDERED: TAMSULOSIN 0.4 MG CAPSULE PO SCH (09:00)
[2022-06-27] MEDS ORDERED: ASCORBIC ACID 500 MG TABLET PO SCH (09:00)
[2022-06-27] MEDS ORDERED: POTASSIUM CHLORIDE 20 MEQ TABLET PO SCH (09:00)
[2022-06-27] MEDS ORDERED: FUROSEMIDE 80 MG TABLET PO SCH (09:00)
[2022-06-27] MEDS ORDERED: MULTIVITAMIN (CENTRUM) TABLET PO SCH (09:00)
[2022-06-27] MEDS ORDERED: metOLazone 2.5 MG TABLET PO SCH (09:00)
[2022-06-27] MEDS ORDERED: ZINC SULFATE 220 MG CAPSULE PO SCH (09:00)
[2022-06-27] MEDS ORDERED: ASPIRIN CHEW 81 MG TABLET PO SCH (09:00)
[2022-06-27] MEDS: DOCUSATE SODIUM 100 MG CAPSULE PO SCH (11:42)
[2022-06-27] MEDS: PANTOPRAZOLE 40 MG TABLET PO SCH (11:43)
[2022-06-27 12:18] VITALS: BP 127/93
[2022-06-27] MEDS ORDERED: WARFARIN 5 MG TABLET PO SCH (18:00)
[2022-06-27] MEDS ORDERED: DILTIAZEM CD 240 MG CAPSULE PO SCH (21:00)
[2022-06-27] MEDS ORDERED: traZODone 50 MG TABLET PO SCH (21:00)
[2022-06-27] MEDS ORDERED: MELATONIN 3 MG TABLET PO SCH (21:00)
[2022-06-27] MEDS ORDERED: SIMVASTATIN 20 MG TABLET PO SCH (21:00)
== END 2022-06-27 17:15 | DRG 206 ==
LOC: N.ED 19:27 → N.EDINP 21:14 → N.TELEN 06-26 15:02
PROVIDERS: ADMIT Family Medicine; ATTEND Family Medicine